=== PATIENT | male | born 1980 | race Caucasian/White ===

== ENCOUNTER 2018-09-06 13:39 | Emergency (ER) | payer SELFPAY ==
[~2018-09-06] VITALS: Ht 182.9 cm; Wt 72.6 kg
[~2018-09-06 13:39] MED LIST: CIPR500T94 PO; FAMO-63 PO; HYDR-971 PO; ONDA4TAB10 PO
[2018-09-06 14:17] LABS: BILIRUBIN,URINE MODERATE (NEG); CLARITY,URINE CLEAR; COLOR,URINE RED; NITRITE,URINE POSITIVE (NEG); PH,URINE 7.5; PROTEIN,URINE 100 mg/dL (NEG-TRACE)
[2018-09-06 14:29] LABS: BARBITURATES NEG (NEG); BENZODIAZEPINES POS (NEG); CANNABINOIDS POS (NEG); COCAINE NEG (NEG); METHADONE NEG (NEG); OPIATES NEG (NEG); PHENCYCLIDINE NEG (NEG)
[2018-09-06] MEDS: PANTOPRAZOLE IV PUSH 40 MG VIAL. IVP ONE (14:31)
[2018-09-06] MEDS: ONDANSETRON PF 4 MG/2 ML VIAL. IV ONE (14:31)
[2018-09-06] MEDS: IV NORMAL SALINE 1000ML BAG 1,000 ML IV ONE (14:31)
[2018-09-06] MEDS: DICYCLOMINE HCL 10 MG CAPSULE PO ONE (14:31)
[2018-09-06 14:32] LABS: AMPHETAMINE/METHAMPHETAMINE NEG (NEG)
[2018-09-06 14:35] LABS: RBC,URINE 0 /HPF (0-2)
[2018-09-06 14:36] LABS: BACTERIA,URINE FEW /HPF (0-FEW); SQUAMOUS EPITHELIAL CELL,UR FEW /LPF
[2018-09-06 14:48] LABS: BASO % 0 % (0-3); EOS % 0 % (0-3); HEMATOCRIT 50.5 % (39.0-53.0); HEMOGLOBIN 17.7 g/dL (13.0-17.5); LYMPH # 0.6 x10^3/uL (1.0-4.8); LYMPH % 9 % (24-48); MEAN CORPUSCULAR HEMOGLOBIN 35 pg (25-35); MEAN CORPUSCULAR HGB CONC 35 g/dL (31-37); MEAN CORPUSCULAR VOLUME 101 fL (79-100); MONO # 0.8 x10^3/uL (0.0-1.1); MONO % 13 % (0-9); NEUT # 5.2 x10^3uL (1.8-7.7); NEUT % 78 % (31-73); PLATELET COUNT 165 x10^3/uL (140-400); WHITE BLOOD COUNT 6.6 x10^3/uL (4.0-11.0)
[2018-09-06 14:57] LABS: CALCIUM 9.2 mg/dL (8.5-10.1); GFR 84.1; POTASSIUM 3.4 mmol/L (3.5-5.1)
[2018-09-06 15:03] LABS: ALBUMIN/GLOBULIN RATIO 0.9 (1.0-1.7); TOTAL BILIRUBIN 1.7 mg/dL (0.2-1.0); TOTAL PROTEIN 8.5 g/dL (6.4-8.2)
[2018-09-06] MEDS ORDERED: CONTRAST GIVEN. MC PRN (15:15)
[2018-09-06] MEDS ORDERED: IOHEXOL 300 MG/ML 100ML VIAL. IV ONE (15:15)
--- NOTE | 2018-09-06 15:42 | RAD ---
PQRS Compliance Statement: One or more of the following individualized dose reduction techniques were utilized for this examination: 1. Automated exposure control 2. Adjustment of the mA and/or kV according to patient size 3. Use of iterative reconstruction technique CT ABD PELV W/ IV CONTRST ONLY Clinical Indication: NVD ABD PAIN X 3 DAYS Comparison: CT abdomen and pelvis with contrast, August 21, 2016. Technique: Helical CT imaging of the abdomen and pelvis is performed after 75 cc of Omnipaque 300 IV contrast. Oral contrast not given. Findings: Lung bases are clear. Cardiac size is normal. Fatty infiltration of the liver. Focal fatty sparing along the gallbladder fossa. Gallbladder, spleen, pancreas, adrenal glands, abdominal aorta, and kidneys are normal. Stomach unremarkable. No dilated small bowel. No colon wall thickening is identified. The appendix is normal. No abdominal adenopathy or free fluid. Urinary bladder is normal. Prostate size normal. No pelvic free fluid. No acute bone abnormality. IMPRESSION: 1. No acute abdominal or pelvic abnormality. 2. Fatty infiltration of the liver. Electronically signed by: Stas Orellana MD (09/06/2018 3:39 PM) [id number]
[2018-09-06] MEDS: AZITHROMYCIN 250 MG TABLET. PO ONE (16:32)
[2018-09-06] MEDS ORDERED: DICY20TA3 PO (16:51)
[2018-09-06] MEDS ORDERED: ONDA4TAB10 SL (16:51)
[2018-09-06] MEDS ORDERED: CLON0.1T PO (16:51)
--- NOTE | 2018-09-06 16:51 | PHYS DOC ---
Past Medical History Past Medical History: Seizure, Other Additional Past Medical Histor: ARF Past Surgical History: Other Additional Past Surgical Histo: BILATERAL EYE SX Alcohol Use: Occasionally Drug Use: Marijuana Social History Narrative: xanax abuse Adult General Chief Complaint Chief Complaint: NAUSEA/VOMITING/DIARRHA HPI HPI Patient is a 37 year old male with history of seizures, alcohol abuse, who presents today complaining of nausea, vomiting, diarrhea, abdominal discomfort for 3 days. Patient denies any hematemesis or melena. He states he has been weaning himself off alcohol, he states the last time he had a drink was 3 days ago. Review of Systems Review of Systems Constitutional: Denies fever or chills [] Eyes: Denies change in visual acuity, redness, or eye pain [] HENT: Denies nasal congestion or sore throat [] Respiratory: Denies cough or shortness of breath [] Cardiovascular: No additional information not addressed in HPI [] GI: Reports nausea vomiting diarrhea and abdominal discomfort. : Denies dysuria or hematuria [] Musculoskeletal: Denies back pain or joint pain [] Integument: Denies rash or skin lesions [] Neurologic: Denies headache, focal weakness or sensory changes [] All other systems were reviewed and found to be within normal limits, except as documented in this note. Current Medications Current Medications Current Medications Medications (Trade) Dose Ordered Sig/Jaren Start Time Stop Time Status Last Admin Dose Admin Azithromycin (Zithromax) 1,000 mg 1X ONCE 09/06/18 16:00 09/06/18 16:01 DC 09/06/18 16:32 1,000 MG Ceftriaxone Sodium 50 ml @ 100 mls/hr 1X ONCE 09/06/18 16:00 09/06/18 16:29 DC 09/06/18 16:31 100 MLS/HR Dicyclomine HCl (Bentyl) 20 mg 1X ONCE 09/06/18 14:15 09/06/18 14:17 DC 09/06/18 14:31 20 MG Info (CONTRAST GIVEN -- Rx MONITORING) 1 each PRN DAILY PRN 09/06/18 15:15 09/08/18 15:14 Iohexol (Omnipaque 300 Mg/ml) 75 ml 1X ONCE 09/06/18 15:15 09/06/18 15:16 DC Ondansetron HCl (Zofran) 4 mg 1X ONCE 09/06/18 14:15 09/06/18 14:17 DC 09/06/18 14:31 4 MG Pantoprazole Sodium (PROTONIX VIAL for IV PUSH) 40 mg 1X ONCE 09/06/18 14:15 09/06/18 14:17 DC 09/06/18 14:31 40 MG Sodium Chloride 1,000 ml @ 1,000 mls/hr 1X ONCE 09/06/18 14:15 09/06/18 15:14 DC 09/06/18 14:31 1,000 MLS/HR Allergies Allergies Allergies Coded Allergies Type Severity Reaction Last Updated Verified No Known Drug Allergies 08/16/16 No Physical Exam Physical Exam Constitutional: Well developed, well nourished, no acute distress, non-toxic appearance. [] HENT: Normocephalic, atraumatic, bilateral external ears normal, oropharynx moist, no oral exudates, nose normal. [] Eyes: PERRLA, EOMI, conjunctiva normal, no discharge. Neck: Normal range of motion, no tenderness, supple, no stridor. [] Cardiovascular:Heart rate regular rhythm, no murmur [] Lungs & Thorax: Bilateral breath sounds clear to auscultation [] Abdomen: Bowel sounds normal, soft, no tenderness, no masses, no pulsatile masses. [] Skin: Warm, dry, no erythema, no rash. [] Back: No tenderness, no CVA tenderness. [] Extremities: No tenderness, no cyanosis, no clubbing, ROM intact, no edema. [] Neurologic: Alert and oriented X 3, normal motor function, normal sensory function, no focal deficits noted. [] Psychologic: Flat affect. Current Patient Data Vital Signs Vital Signs Date Time Temp Pulse Resp B/P (MAP) Pulse Ox O2 Delivery O2 Flow Rate FiO2 09/06/18 13:57 98.3 105 16 179/119 (139) 99 Room Air 98.3 Lab Values Laboratory Tests Test 09/06/18 14:08 09/06/18 14:10 White Blood Count 6.6 x10^3/uL (4.0-11.0) Red Blood Count 5.00 x10^6/uL (4.30-5.70) Hemoglobin 17.7 g/dL (13.0-17.5) H Hematocrit 50.5 % (39.0-53.0) Mean Corpuscular Volume 101 fL (79-100) H Mean Corpuscular Hemoglobin 35 pg (25-35) Mean Corpuscular Hemoglobin Concent 35 g/dL (31-37) Red Cell Distribution Width 15.0 % (11.5-14.5) H Platelet Count 165 x10^3/uL (140-400) Neutrophils (%) (Auto) 78 % (31-73) H Lymphocytes (%) (Auto) 9 % (24-48) L Monocytes (%) (Auto) 13 % (0-9) H Eosinophils (%) (Auto) 0 % (0-3) Basophils (%) (Auto) 0 % (0-3) Neutrophils # (Auto) 5.2 x10^3uL (1.8-7.7) Lymphocytes # (Auto) 0.6 x10^3/uL (1.0-4.8) L Monocytes # (Auto) 0.8 x10^3/uL (0.0-1.1) Eosinophils # (Auto) 0.0 x10^3/uL (0.0-0.7) Basophils # (Auto) 0.0 x10^3/uL (0.0-0.2) Sodium Level 141 mmol/L (136-145) Potassium Level 3.4 mmol/L (3.5-5.1) L Chloride Level 99 mmol/L (98-107) Carbon Dioxide Level 30 mmol/L (21-32) Anion Gap 12 (6-14) Blood Urea Nitrogen 7 mg/dL (8-26) L Creatinine 1.0 mg/dL (0.7-1.3) Estimated GFR (Cockcroft-Gault) 84.1 BUN/Creatinine Ratio 7 (6-20) Glucose Level 89 mg/dL (70-99) Calcium Level 9.2 mg/dL (8.5-10.1) Total Bilirubin 1.7 mg/dL (0.2-1.0) H Aspartate Amino Transferase (AST) 109 U/L (15-37) H Alanine Aminotransferase (ALT) 111 U/L (16-63) H Alkaline Phosphatase 103 U/L (46-116) Total Protein 8.5 g/dL (6.4-8.2) H Albumin 4.0 g/dL (3.4-5.0) Albumin/Globulin Ratio 0.9 (1.0-1.7) L Lipase 188 U/L (73-393) Urine Collection Type Unknown Urine Color Red Urine Clarity Clear Urine pH 7.5 Urine Specific [place] >=1.030 Urine Protein 100 mg/dL (NEG-TRACE) Urine Glucose (UA) Negative mg/dL (NEG) Urine Ketones (Stick) >=80 mg/dL (NEG) Urine Blood Negative (NEG) Urine Nitrite Positive (NEG) Urine Bilirubin Moderate (NEG) Urine Urobilinogen Dipstick 2.0 mg/dL (0.2 mg/dL) Urine Leukocyte Esterase Moderate (NEG) Urine RBC 0 /HPF (0-2) Urine WBC 5-10 /HPF (0-4) Urine Squamous Epithelial Cells Few /LPF Urine Bacteria Few /HPF (0-FEW) Urine Mucus Slight /LPF Urine Opiates Screen Neg (NEG) Urine Methadone Screen Neg (NEG) Urine Barbiturates Neg (NEG) Urine Phencyclidine Screen Neg (NEG) Urine Amphetamine/Methamphetamine Neg (NEG) Urine Benzodiazepines Screen Pos (NEG) Urine Cocaine Screen Neg (NEG) Urine Cannabinoids Screen Pos (NEG) Urine Ethyl Alcohol Neg (NEG) Laboratory Tests 09/06/18 14:08 Laboratory Tests 09/06/18 14:08 EKG EKG [] Radiology/Procedures Radiology/Procedures []PROCEDURE: CT ABD PELV W/ IV CONTRST ONLY PQRS Compliance Statement: One or more of the following individualized dose reduction techniques were utilized for this examination: 1. Automated exposure control 2. Adjustment of the mA and/or kV according to patient size 3. Use of iterative reconstruction technique CT ABD PELV W/ IV CONTRST ONLY Clinical Indication: NVD ABD PAIN X 3 DAYS Comparison: CT abdomen and pelvis with contrast, August 21, 2016. Technique: Helical CT imaging of the abdomen and pelvis is performed after 75 cc of Omnipaque 300 IV contrast. Oral contrast not given. Findings: Lung bases are clear. Cardiac size is normal. Fatty infiltration of the liver. Focal fatty sparing along the gallbladder fossa. Gallbladder, spleen, pancreas, adrenal glands, abdominal aorta, and kidneys are normal. Stomach unremarkable. No dilated small bowel. No colon wall thickening is identified. The appendix is normal. No abdominal adenopathy or free fluid. Urinary bladder is normal. Prostate size normal. No pelvic free fluid. No acute bone abnormality. IMPRESSION: 1. No acute abdominal or pelvic abnormality. 2. Fatty infiltration of the liver. Electronically signed by: Stas Orlando MD (09/06/2018 3:39 PM) [id number] DICTATED and SIGNED BY: STAS ORLANDO MD DATE: 09/06/18 1533 Course & Med Decision Making Course & Med Decision Making Pertinent Labs and Imaging studies reviewed. (See chart for details) This is a 37-year-old male patient presenting to the ED today with nausea vomiting and diarrhea as well as abdominal discomfort for 3 days. Has history of alcohol abuse though he states the last time his trunk was 3 days ago, he is working on weaning himself off alcohol. He declined any help. Urine drug screen was negative for alcohol, positive for marijuana use and benzodiazepines. Urine analysis is noted for nitrites and leukocytes. Patient states is concerned about STDs, he states he was exposed a while back and never treated. Was given Rocephin and azithromycin in the ED. AST was 109 ALT 111. Patient has history of alcohol use and this is likely the source for his elevated liver enzymes. CT of the abdomen and pelvic was negative for any acute findings. Patient is requesting something to be discharged home with for withdrawals. D/c on Clonidine. F/u with PCP in one week. Dragon Disclaimer Dragon Disclaimer This electronic medical record was generated, in whole or in part, using a voice recognition dictation system. Departure Departure Impression: Primary Impression: Nausea & vomiting Additional Impressions: Abdominal pain Urinary tract infection Concern about STD in female without diagnosis Hypertension Alcohol abuse Transaminitis Disposition: HOME, SELF-CARE Condition: STABLE Referrals: NO PCP (PCP) follow up with your doctor in 1 week Patient Instructions: Abdominal Pain, Hypertension, Nausea and Vomiting, Easy- to-Read, Urinary Tract Infection Additional Instructions: You were evaluated in the emergency room for abdominal pain with nausea vomiting and diarrhea. Your CT was negative for any acute findings. Consider getting help for alcohol use if you can. We put you on antibiotics ensure you complete them. Also contact all your sex partners and ask them to seek treatment too for STDs. 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 09/06/18 Dicyclomine Hcl (DICYCLOMINE HCL) 20 Mg Tablet 1 TAB PO TID, #30 TAB 1 Refill Prov: MAXIMUS KHAN MARIANA 09/06/18 Ondansetron (ZOFRAN ODT) 4 Mg Tab.rapdis 1 TAB SL Q8HRS, #15 TAB Prov: MAXIMUS KHAN APRN 09/06/18 Problem Qualifiers Primary Impression: Nausea & vomiting Vomiting type: unspecified Vomiting Intractability: unspecified Qualified Codes: R11.2 - Nausea with vomiting, unspecified Additional Impressions: Abdominal pain Abdominal location: generalized Qualified Codes: R10.84 - Generalized abdominal pain Urinary tract infection Urinary tract infection type: site unspecified Hematuria presence: without hematuria Qualified Codes: N39.0 - Urinary tract infection, site not specified Hypertension Hypertension type: unspecified Qualified Codes: I10 - Essential (primary) hypertension MAXIMUS KHAN MARIANA Sep 06, 2018 16:51
[2018-09-06 17:00] VITALS: BP 157/81
== END 2018-09-06 17:22 | disposition home or self-care (01) ==
LOC: ER 13:39
DX: N39.0 Urinary tract infection, site not specified (principal); R11.2 Nausea with vomiting, unspecified; I10 Essential (primary) hypertension; R74.0 Nonspecific elevation of levels of transaminase and lactic acid dehydrogenase [LDH]; R10.9 Unspecified abdominal pain; F10.10 Alcohol abuse, uncomplicated; R19.7 Diarrhea, unspecified; Z20.2 Contact with and (suspected) exposure to infections with a predominantly sexual mode of transmission; F12.20 Cannabis dependence, uncomplicated; Y90.9 Presence of alcohol in blood, level not specified
CPT/HCPCS: 36415; 74177; 80053; 80307; 81001; 83690; 85025; 87086; 96361; 96365; 96375; 99285; C9113; J0690; J2405; J7030; Q0144; G0479

== ENCOUNTER 2019-12-09 14:34 | Emergency (ER) | payer SELFPAY ==
[~2019-12-09] VITALS: Ht 182.9 cm; Wt 77.2 kg
[~2019-12-09 14:34] MED LIST changes: +CLON0.1T PO; +DICY20TA3 PO; +HYDR-3164 PO; -HYDR-971 PO; +ONDA4TAB10 SL
[2019-12-09 14:38] VITALS: BP 158/101
--- NOTE | 2019-12-09 15:51 | RAD ---
RIBS RIGHT AND PA CHEST History: Right rib pain. Fall. Technique: PA view the chest. For additional views of the right ribs. Comparison: None. Findings: No consolidation or pleural effusion. No pneumothorax. Normal heart size. No displaced rib fractures. Impression: 1. No acute cardiopulmonary process. No displaced rib fractures. Electronically signed by: Андрей Contreras DO (12/09/2019 3:47 PM) [id number]
--- NOTE | 2019-12-09 16:13 | PHYS DOC ---
Past Medical History Past Medical History: No Pertinent History, Seizure, Other Additional Past Medical Histor: ARF Past Surgical History: Other Additional Past Surgical Histo: BILATERAL EYE SX Additional Information: half ppd Alcohol Use: None Drug Use: Marijuana Adult General Chief Complaint Chief Complaint: RIB PAIN [facility] HPI Patient is a 39 year old male who presents to the emergency department with complaints of right lateral rib pain and bruising after a slip and fall on ice in his front yard on December 062019. Patient states when he fell his right side hit a brick retaining wall. He denies any shortness of breath, hemoptysis, wheezing, fever, or fatigue. Patient denies any difficulty breathing. He currently rates his pain 8 out of 10 on the pain scale, this number increases with coughing and movement. All other ROS is neg unless otherwise noted in HPI. Review of Systems Review of Systems See Above Allergies Allergies Allergies Coded Allergies Type Severity Reaction Last Updated Verified No Known Drug Allergies 08/16/16 No Physical Exam Physical Exam See Above Constitutional: Well developed, well nourished, no acute distress, non-toxic appearance. [] HENT: Normocephalic, atraumatic, bilateral external ears normal, oropharynx moist, no oral exudates, nose normal. [] Eyes: PERRLA, EOMI, conjunctiva normal, no discharge. [] Neck: Normal range of motion, no tenderness, supple, no stridor. [] Cardiovascular:Heart rate regular rhythm, no murmur [] Lungs & Thorax: Bilateral breath sounds clear to auscultation, R lateral rib TTP, no subcutaneous emphysema, no wheezing, no retractions, no creptius[] Skin: Warm, dry, no erythema, no rash; dark purple bruising noted to right lower lateral ribs. [] Back: No tenderness, no CVA tenderness. [] Extremities: No cyanosis, ROM intact Neurologic: Alert and oriented X 3, no focal deficits noted. [] Psychologic: Affect normal, judgement normal, mood normal. [] Current Patient Data Vital Signs Vital Signs Date Time Temp Pulse Resp B/P (MAP) Pulse Ox O2 Delivery O2 Flow Rate FiO2 12/09/19 14:38 98.5 84 21 158/101 (120) 98 Room Air 98.5 EKG EKG [] Radiology/Procedures Radiology/Procedures PROCEDURE: RIBS RIGHT AND PA CHEST RIBS RIGHT AND PA CHEST History: Right rib pain. Fall. Technique: PA view the chest. For additional views of the right ribs. Comparison: None. Findings: No consolidation or pleural effusion. No pneumothorax. Normal heart size. No displaced rib fractures. Impression: 1. No acute cardiopulmonary process. No displaced rib fractures.[] Course & Med Decision Making Course & Med Decision Making Pertinent Labs and Imaging studies reviewed. (See chart for details) [] Dragon Disclaimer Dragon Disclaimer This electronic medical record was generated, in whole or in part, using a voice recognition dictation system. Departure Departure Impression: Primary Impression: Contusion of rib on right side Disposition: HOME, SELF-CARE Condition: STABLE Referrals: NO PCP (PCP) Patient Instructions: Rib Contusion Additional Instructions: Tylenol or ibuprofen as needed fro pain. Apply heat or ice to sore area as needed for comfort. Hold a pillow and cough at least 2 times every hour while awake. Follow up with your primary care doctor this week. Return to the ER if symptoms worsen. Problem Qualifiers Primary Impression: Contusion of rib on right side Encounter type: initial encounter Qualified Codes: S20.211A - Contusion of right front wall of thorax, initial encounter DEBBIE ALLAN APRN Dec 09, 2019 16:13
== END 2019-12-09 16:22 | disposition home or self-care (01) ==
LOC: ER 14:34
DX: S20.211A Contusion of right front wall of thorax, initial encounter (principal); F12.90 Cannabis use, unspecified, uncomplicated; F17.200 Nicotine dependence, unspecified, uncomplicated; Z98.890 Other specified postprocedural states; W00.2XXA Other fall from one level to another due to ice and snow, initial encounter; Y93.89 Activity, other specified; Y92.096 Garden or yard of other non-institutional residence as the place of occurrence of the external cause; Y99.8 Other external cause status
CPT/HCPCS: 71101; 99284